=== PATIENT | male | born 1930 | race Caucasian/White ===

== ENCOUNTER → 2016-12-11 | Outpatient (CLI) | payer MEDICARE, OTHER ==
[~2016-12-11] MED LIST: ASPIRIN (CHILDR81 MG PO; FLOMAX0.4 MG PO; LIPITOR20 M1 PO; PLAVIX75 MG PO; THERAGRAN-M1 TAB PO; TIMOPTIC XE 0.5%5 ML OPHTH; TYLENOL EXTRA500 MG PO
[2016-12-11 17:35] LABS: BASOPHIL # 0.1 K/uL (0.0-0.2); BASOPHIL % 1.3 %; EOSINOPHIL # 0.4 K/uL (0.0-0.5); EOSINOPHIL % 5.4 %; HEMATOCRIT 41.3 % (33.0-50.0); IMMATURE GRANULOCYTE # 0.1 K/uL (0.0-0.3); LYMPHOCYTE # 1.7 K/uL (0.8-4.0); MCH 32.5 pg (27.0-34.0); MCHC 33.9 gm/dL (32.0-36.5); MCV 95.8 fl (83.0-98.0); MONOCYTE # 0.9 K/uL (0.0-1.0); MPV 8.9 fl (9.4-12.4); NEUTROPHIL # (ANC) 4.7 K/uL (1.4-9.0); NEUTROPHIL % 59.3 %; NRBC % 0 /100WBC (0-0.00); PLATELET COUNT 370 K/uL (150-450); RBC 4.31 M/uL (3.50-5.50); RDW-CV 12.2 % (11.9-14.6); WBC 7.9 K/uL (4.0-11.0)
[2016-12-11 17:51] LABS: ALBUMIN 3.5 gm/dL (3.5-5.0); ALK PHOS 68 IU/L (33-138); ALT 20 IU/L (12-78); ANION GAP 13.1 (10.0-19.0); AST 12 IU/L (10-40); BLOOD UREA NITROGEN 17 mg/dL (6-24); CALCIUM 8.7 mg/dL (8.5-10.5); CHLORIDE 95 mMol/L (96-110); CO2 26 mMol/L (22-32); CREATININE 0.7 mg/dL (0.6-1.3); ESTIMATED GFR (MDRD EQUATION) > 60; POTASSIUM 4.1 mMol/L (3.7-5.1); SODIUM 130 mMol/L (135-145); TOTAL PROTEIN 6.7 g/dL (6.0-8.4)
== END | disposition disaster alternative care site (69) ==
LOC: LNHI 17:29
PROVIDERS: Internal Medicine Cardiovascular Disease
DX: E78.2 Mixed hyperlipidemia (principal); I65.23 Occlusion and stenosis of bilateral carotid arteries; I10 Essential (primary) hypertension